=== PATIENT | male | born 1955 | race Caucasian/White ===

== ENCOUNTER 2023-05-26 12:21 | Inpatient (IN) | payer MEDICARE ==
[~2023-05-26] VITALS: Ht 175.3 cm; Wt 115.9 kg
[2023-05-26 12:52] LABS: BASOPHILS % (AUTO) 0.2 % (0-1); EOSINOPHILS % (AUTO) 0.1 % (0-6); HEMATOCRIT 49.6 % (42.0-52.0); HEMOGLOBIN 16.5 g/dl (14.0-17.9); LYMPHOCYTES # (AUTO) 2.6 X10'3 (1.1-4.8); LYMPHOCYTES % (AUTO) 15.5 % (21-51); MEAN CORPUSCULAR HEMOGLOBIN 32.1 PG (27.0-31.0); MEAN CORPUSCULAR HGB CONC 33.3 g/dL (33.0-36.5); MEAN CORPUSCULAR VOLUME 96.2 FL (78-98); MEAN PLATELET VOLUME 8.7 FL (7.4-10.4); MONOCYTES # (AUTO) 1.2 X10'3 (0-0.9); NEUTROPHILS % (AUTO) 77.2 % (42-75); PLATELET COUNT 386 X10'3 (140-440); RED BLOOD COUNT 5.15 X10'6 (4.70-6.10); RED CELL DISTRIBUTION WIDTH 13.4 % (11.5-14.5); WHITE BLOOD COUNT 16.8 X10'3 (4.5-11.0)
[2023-05-26 13:11] LABS: ALANINE AMINOTRANSFERASE 63 U/L (12-78); ALBUMIN 3.8 G/DL (3.4-5.0); ALKALINE PHOSPHATASE 78 IU/L (46-116); ANION GAP 9 (8-16); ASPARTATE AMINO TRANSFERASE 21 U/L (10-37); BILIRUBIN,TOTAL 0.4 MG/DL (0.1-1.0); BLOOD UREA NITROGEN 48 MG/DL (7-18); CALCIUM 8.9 MG/DL (8.5-10.1); CHLORIDE 105 MMOL/L (99-107); CREATININE 1.78 MG/DL (0.60-1.10); GLUCOSE 85 MG/DL (70-104); POTASSIUM 3.7 MMOL/L (3.5-5.1); SODIUM 142 MMOL/L (135-145); TOTAL CARBON DIOXIDE 28.1 MMOL/L (24-32); TOTAL PROTEIN 7.5 G/DL (6.4-8.2); eCRCL 40 ML/MIN; eGFR 38 ML/MIN
[2023-05-26 13:17] LABS: PRO BRAIN NATRIURETIC PEPTIDE 1189 PG/ML (0-125)
[2023-05-26] MEDS ORDERED: ipratropium/albuterol 3ml nebule NEB ONE (15:00)
[2023-05-26] MEDS ORDERED: methylPREDNISolone sod succ 125mg/2ml vial IV ONE (15:00)
[2023-05-26] MEDS ORDERED: nitroGLYCERIN 1gm ointment UD TP ONE (15:10)
[2023-05-26] MEDS ORDERED: aspirin 325mg tablet PO ONE (15:10)
[2023-05-26 15:45] VITALS: PULSE 76; RESP 17; O2SAT 94
[2023-05-26 15:51] VITALS: PULSE 82; RESP 18; O2SAT 96
[2023-05-26] MEDS ORDERED: furosemide 10 MG/1 ML 10ml inj IV ONE (15:55)
[2023-05-26] MEDS ORDERED: HYDROcodone/acetaminophen 5mg/325mg tablet PO PRN (16:35)
[2023-05-26] MEDS ORDERED: potassium Cl 20 mEq SR tablet PO PRN ×2 (16:35)
[2023-05-26] MEDS ORDERED: potassium Cl 40MEQ/1/2NS 520ml 520 ML IV PRN (16:35)
[2023-05-26] MEDS ORDERED: magnesium 2GM in 50ml NS 50 ML IV PRN (16:35)
[2023-05-26] MEDS ORDERED: magnesium Cl slow-release 64mg tablet PO PRN (16:35)
[2023-05-26] MEDS ORDERED: acetaminophen 325mg tablet PO PRN ×2 (16:35)
[2023-05-26] MEDS ORDERED: magnesium 4gm in 100ml NS 100 ML IV PRN (16:35)
[2023-05-26] MEDS ORDERED: morphine 2 MG/ML inj. syringe IV PRN (16:35)
[2023-05-26] MEDS ORDERED: ondansetron/PF 4mg/2ml inj IV PRN (16:35)
[2023-05-26] MEDS: metoprolol succinate 25mg (24-HOUR) SR. Tablet PO SCH (17:50)
[2023-05-26] MEDS ORDERED: FURO40TA4 PO (18:51)
[2023-05-26] MEDS ORDERED: ASCO500T10 PO (18:51)
[2023-05-26] MEDS ORDERED: ATOR10TA70 PO (18:51)
[2023-05-26] MEDS ORDERED: CYAN100T39 PO (18:51)
[2023-05-26] MEDS ORDERED: LEVO112T5 PO (18:51)
[2023-05-26] MEDS ORDERED: GLIP5TAB13 PO (18:51)
[2023-05-26] MEDS ORDERED: PROP15DR EACHEYE (18:51)
[2023-05-26] MEDS ORDERED: METF-1203 PO (18:51)
[2023-05-26] MEDS ORDERED: METO25TA6 PO (18:51)
[2023-05-26] MEDS ORDERED: MULT-1085 PO (18:51)
[2023-05-26] MEDS ORDERED: CHOL100046 PO (18:51)
[2023-05-26] MEDS ORDERED: POTA-188 PO (18:51)
[2023-05-26] MEDS ORDERED: BUDE10.2 IH (18:51)
[2023-05-26] MEDS ORDERED: VITA400T10 PO (18:51)
[2023-05-26] MEDS ORDERED: ALBU2.5V13 NEB (18:51)
[2023-05-26] MEDS ORDERED: enoxaparin 40mg/0.4ml syringe SQ SCH (20:00)
[2023-05-26 20:48] LABS: HEMOGLOBIN A1C 6.7 % (4.5-6.2)
[2023-05-26 20:51] LABS: OSMOLALITY 314 MOSM/K (280-300)
[2023-05-26 20:58] LABS: D-DIMER 0.29 MG/L FEU (0-0.50)
[2023-05-26] MEDS ORDERED: temazepam 15mg capsule PO PRN (21:00)
[2023-05-26 21:09] LABS: C-REACTIVE PROTEIN 0.16 MG/DL (0.0-0.5); CHOL/HDL RATIO 4.1 (0.00-4.99); CHOLESTEROL 203 MG/DL (0-200); CREATINE KINASE 234 U/L (39-308); HDL CHOLESTEROL 50 MG/DL (35-60); LDL CHOLESTEROL 103 MG/DL (50-100); PRO BRAIN NATRIURETIC PEPTIDE 1051 PG/ML (0-125); THYROID STIMULATING HORMONE 4.59 ulU/ml (0.34-4.50); TRIGLYCERIDES 291 MG/DL (20-135)
--- NOTE | 2023-05-26 21:28 | NUR ---
Entresto and lasix both sceduled to be administered tonight with SBP of 107. Will administer Entresto after lasix, if safe, to ensure stable SBP
[2023-05-26] MEDS: furosemide 20 MG/2 ML vial IV SCH (22:04)
--- NOTE | 2023-05-26 22:06 | NUR ---
Patient placed on a hospital bed and states he is more comfortable.
[2023-05-26] MEDS: sacubitril/valsartan 24mg-26mg tablet PO SCH (22:21)
[2023-05-27 04:09] LABS: BASOPHILS % (AUTO) 0.3 % (0-1); EOSINOPHILS % (AUTO) 0 % (0-6); HEMATOCRIT 46.1 % (42.0-52.0); HEMOGLOBIN 15.5 g/dl (14.0-17.9); LYMPHOCYTES # (AUTO) 0.9 X10'3 (1.1-4.8); LYMPHOCYTES % (AUTO) 9.2 % (21-51); MEAN CORPUSCULAR HEMOGLOBIN 32.4 PG (27.0-31.0); MEAN CORPUSCULAR HGB CONC 33.6 g/dL (33.0-36.5); MEAN CORPUSCULAR VOLUME 96.5 FL (78-98); MEAN PLATELET VOLUME 9.1 FL (7.4-10.4); MONOCYTES # (AUTO) 0.1 X10'3 (0-0.9); MONOCYTES % (AUTO) 1.1 % (2-12); NEUTROPHILS # (AUTO) 8.7 X10'3 (1.8-7.7); NEUTROPHILS % (AUTO) 89.4 % (42-75); PLATELET COUNT 324 X10'3 (140-440); RED BLOOD COUNT 4.77 X10'6 (4.70-6.10); RED CELL DISTRIBUTION WIDTH 13.3 % (11.5-14.5); WHITE BLOOD COUNT 9.8 X10'3 (4.5-11.0)
[2023-05-27 04:17] LABS: ALANINE AMINOTRANSFERASE 51 U/L (12-78); ALBUMIN 3.3 G/DL (3.4-5.0); ALBUMIN/GLOBULIN RATIO 0.9 (1.1-1.5); ALKALINE PHOSPHATASE 74 IU/L (46-116); ANION GAP 8 (8-16); ASPARTATE AMINO TRANSFERASE 21 U/L (10-37); BILIRUBIN,TOTAL 0.4 MG/DL (0.1-1.0); BLOOD UREA NITROGEN 47 MG/DL (7-18); BUN/CREATININE RATIO 25.5 (10.0-20.0); CALCIUM 8.5 MG/DL (8.5-10.1); CHLORIDE 104 MMOL/L (99-107); CREATININE 1.84 MG/DL (0.60-1.10); GLUCOSE 236 MG/DL (70-104); POTASSIUM 4.4 MMOL/L (3.5-5.1); SODIUM 139 MMOL/L (135-145); TOTAL CARBON DIOXIDE 26.7 MMOL/L (24-32); TOTAL PROTEIN 6.8 G/DL (6.4-8.2); eCRCL 38 ML/MIN; eGFR 37 ML/MIN
[2023-05-27 07:14] VITALS: BP 124/76; PULSE 66; RESP 18; TEMP 97.3; O2SAT 96
[2023-05-27] MEDS: metoprolol succinate 25mg (24-HOUR) SR. Tablet PO SCH (08:30)
[2023-05-27] MEDS: furosemide 20 MG/2 ML vial IV SCH (08:30)
[2023-05-27] MEDS: sacubitril/valsartan 24mg-26mg tablet PO SCH (08:30)
[2023-05-27 09:00] VITALS: RESP 18
--- NOTE | 2023-05-27 10:24 | NUR ---
Patient in room PCU 3023. I have received report from ER and had the opportunity to ask questions and assume patient care.
[2023-05-27 10:55] VITALS: RESP 18
[2023-05-27 11:00] VITALS: BP 109/67; PULSE 64; RESP 14; TEMP 97.5; O2SAT 96
[2023-05-27] MEDS ORDERED: METO-395 PO (12:14)
[2023-05-27] MEDS ORDERED: SACU1TAB PO (12:14)
[2023-05-27] MEDS ORDERED: EMPA10TA PO (12:14)
--- NOTE | 2023-05-27 14:49 | NUR ---
Patient discharged home with new medication that were explained and gone over with next dose during discharge. Patients family was in room during discharge. Patient left with all of his belongings and was encouraged find new PCP and to follow up with clock and watch hands painter.
== END 2023-05-27 14:49 | disposition home or self-care (01) | DRG 280 ==
LOC: ER 12:22 → ED HOLD 16:03 → PCU 3S 05-27 07:13
PROVIDERS: ADMIT Internal Medicine; ATTEND Internal Medicine
DX: I13.0 Hypertensive heart and chronic kidney disease with heart failure and stage 1 through stage 4 chronic kidney disease, or unspecified chronic kidney disease (principal); I21.A1 Myocardial infarction type 2; I50.23 Acute on chronic systolic (congestive) heart failure; N17.9 Acute kidney failure, unspecified; J44.9 Chronic obstructive pulmonary disease, unspecified; N18.30 Chronic kidney disease, stage 3 unspecified; Z20.822 Contact with and (suspected) exposure to COVID-19; E03.9 Hypothyroidism, unspecified; E11.22 Type 2 diabetes mellitus with diabetic chronic kidney disease; D72.829 Elevated white blood cell count, unspecified; E78.5 Hyperlipidemia, unspecified; Z79.899 Other long term (current) drug therapy; Z87.891 Personal history of nicotine dependence
CPT/HCPCS: 36415; 71046; 80053; 80061; 82550; 82948; 83036; 83880; 83930; 84443; 84484; 85025; 85379; 85651; 86140; 87811; 94640; 94760; 96374; 99285; G0378; J1650; J1940; J2930